=== PATIENT | male | born 1965 | race Two or more races ===

== ENCOUNTER 2017-05-31 09:46 | Emergency (ER) | payer MEDICARE ==
--- NOTE | ~2017-05-31 | CR127 ---
[facility] A Service of [facility] & [facility] RADIOLOGY TEXT RESULTS PATIENT: DALTON PEPPER SR LOCATION: [facility] : [birth year] UNIT #: [id number] AGE: [address]: Lelo Regalado SEX: M ORDER DR: [id number] [facility] [address]. [place], [place] [address] [id number] E MR#: [id number] Acc #: [id number] NAME: DALTON PEPPER SR : 1965 SEX: M STUDY DATE/TIME: 05/31/2017 UNIT: [facility] ROOM: STUDY DESCRIPTION: CR Foot Complete Min 3 View Rt Attending Physician: Lelo Regalado P.A.-C. Ordering Physician: Lelo Regalado P.A.-C. Primary Care Physician: Jaquan Stafford MEDICAL IMAGING REPORT This report is preliminary unless electronic signature is present EXAM Right foot 3 views 05/31/2017 1008 hours HISTORY 52-year-old man who fell on an escalator last night with pain and swelling of the foot and ankle since fall. COMPARISON None FINDINGS AP, lateral, and oblique views demonstrate no fracture or dislocation. There is a moderate plantar calcaneal spur. IMPRESSION Negative right foot. Dictated by... Marichuy Jenkins M.D. THIS IS AN ELECTRONICALLY VERIFIED REPORT Marichuy Jenkins M.D. at 06/01/2017 9:22 AM Priscila TD: 05/31/2017 17:24 JOB #: [id number] MEDICAL IMAGING REPORT Page 1 of 1 COPY
--- NOTE | ~2017-05-31 | CR21 ---
[facility] A Service of [facility] RADIOLOGY TEXT RESULTS PATIENT: DALTON PEPPER SR LOCATION: [facility] : 69 UNIT #: [id number] AGE: [address]: Lelo Regalado SEX: M ORDER DR: [id number] [facility] [address] [place], [place] [address] [id number] E MR#: [id number] Acc #: [id number] NAME: DALTON PEPPER SR : 1965 SEX: M STUDY DATE/TIME: 05/31/2017 1007 UNIT: [facility] ROOM: STUDY DESCRIPTION: CR Ankle Min 3 Views Rt Attending Physician: Lelo Regalado P.A.-C. Ordering Physician: Lelo Regalado P.A.-C. Primary Care Physician: Jaquan Stafford MEDICAL IMAGING REPORT This report is preliminary unless electronic signature is present EXAM Right ankle 3 views 05/31/2017 1007 hours HISTORY 52-year-old man who fell on an escalator last night with foot and ankle pain and swelling since fall. COMPARISON None FINDINGS AP, lateral and oblique views demonstrate normal bone density. There is no ankle fracture or dislocation. Moderate spurring at the plantar surface of the calcaneus. IMPRESSION No ankle fracture or dislocation. Dictated by... Marichuy Jenkins M.D. THIS IS AN ELECTRONICALLY VERIFIED REPORT Marichuy Jenkins M.D. at 06/01/2017 9:22 AM Priscila TD: 05/31/2017 17:01 JOB #: [id number] MEDICAL IMAGING REPORT Page 1 of 1 COPY
== END 2017-05-31 10:45 | disposition home or self-care (01) ==
LOC: CED 09:46 → CFTX 09:46
DX: S93.411A Sprain of calcaneofibular ligament of right ankle, initial encounter (principal); E11.9 Type 2 diabetes mellitus without complications; I10 Essential (primary) hypertension; X50.1XXA Overexertion from prolonged static or awkward postures, initial encounter; Y92.89 Other specified places as the place of occurrence of the external cause
CPT/HCPCS: 29515; 73610; 73630; 99283

== ENCOUNTER 2017-06-01 11:33 | Emergency (ER) | payer MEDICARE ==
[2017-06-01 12:08] LABS: URINE SOURCE CLEAN CATCH
[2017-06-01 12:17] LABS: URINE APPEARANCE CLOUDY; URINE BILIRUBIN NEG (NEG); URINE BLOOD 1+ (NEG); URINE COLOR YELLOW; URINE GLUCOSE NEG (NEG); URINE KETONE NEG (NEG); URINE LEUKOCYTE ESTERASE 3+ (NEG); URINE NITRATE NEG (NEG); URINE PROTEIN NEG (NEG); URINE SPECIFIC GRAVITY 1.018 (1.003-1.035); URINE UROBILINOGEN 0.2 MG/DL (NEG)
[2017-06-01 12:19] LABS: CULTURE INDICATED? YES; URINE BACTERIA AUWI NEG (NEGATIVE); URINE SQUAMOUS EPITHELIAL CELL NONE SEEN /[HPF]; UWBCS1 AUWI INNUM (0-5)
[2017-06-03 00:46] LABS: CHLAMYDIA TRACH Not Detected (Not Detected); N GONOR Detected (Not Detected)
== END 2017-06-01 12:56 | disposition home or self-care (01) ==
LOC: CFTX 11:33 → CED 11:33 → CFTX 12:36
PROVIDERS: Emergency Medicine
DX: N34.1 Nonspecific urethritis (principal); E11.9 Type 2 diabetes mellitus without complications; I10 Essential (primary) hypertension; Z85.850 Personal history of malignant neoplasm of thyroid
CPT/HCPCS: 81003; 82947; 87086; 87491; 87591; 96372; 99283; J0696